=== PATIENT | female | born 1955 | race African-American/Black ===

== ENCOUNTER 2016-05-23 17:38 | Emergency (ER) | payer OTHER ==
--- NOTE | 2016-05-23 19:59 | PROVIDER DOCUMENTATION ---
HPI-Musculoskeletal Pain/Inj - GENERAL Chief Complaint: Fall Stated Complaint: increased pain post fall Time Seen by Provider: 05/23/16 19:15 Source: patient - HX OF PRESENT ILLNESS-MUSKULOSKELTAL Nature of Presenting Problem: Pt is a 61 y/o AA female sent by [facility] for evaluation of sacral and pelvis pain after she fell backwards and landed on her buttocks. Pt was unable to walk. She has a h/o renal failure and received dialysis today. On arrival, pt is in minimal distress and is non-ambulatory. Review of Systems - Adult - REVIEW OF SYSTEMS - ADULT Constitutional: reports: no symptoms reported. denies: chills, fatique Eyes: reports: no symptoms reported. denies: blurred vision, double vision Ears, Nose, Mouth & Throat: reports: no symptoms reported. denies: ear pain, nose pain, throat pain Cardiovascular: reports: no symptoms reported. denies: chest pain, orthopnea Respiratory: reports: no symptoms reported. denies: cough, shortness of breath Gastrointestinal: reports: no symptoms reported. denies: abdominal pain, nausea Genitourinary: reports: no symptoms reported. denies: flank pain, hesitency Musculoskeletal: reports: bone pain, back pain, joint pain, muscle aches Integumentary: reports: no symptoms reported. denies: itching, rash Neurological: reports: no symptoms reported. denies: numbness, paresthesia Psychiatric: reports: no symptoms reported. denies: anxiety, emotional problems Endocrine: reports: no symptoms reported. denies: cold intolerance, heat intolerance Hematologic/Lymphatic: reports: no symptoms reported. denies: blood clots, low blood count Allergic/Immunologic: reports: no symptoms reported. denies: allergic reactions , food allergy All Other Systems: Reviewed and Negative Past History - Adult - PAST MEDICAL HISTORY-ADULT Review of Records: reports: Old Records Reviewed, Nursing Assessment Review, Medications Reviewed, Social history reviewed & non-contributory. Major Childhood Illnesses: reports: denies history Cardiovascular: reports: A-Fib, CHF (EF of 43% as of Feb 2013), HTN, [place] Respiratory: reports: COPD Gastrointestinal: reports: denies history Obstetrical/Gynecological: reports: denies history Genitourinary: reports: kidney disease Musculoskeletal: reports: denies history Neurological: reports: denies history Endocrine/Immune: reports: Diabetes, HIV/AIDS Other Conditions: reports: denies history Additional History: HIV + - PRIOR SURGERIES/PROCEDURES Surgical/Procedure History: reports: hysterectomy, hernia repair, other (cyst removed from left breast; pediatric heart Sx) - IMMUNIZATION STATUS Childhood Immunizations: NUTD Flu Vaccine: UTD - FAMILY HISTORY Family History: CAD over 55 yo, other (kidney disease, hyperlipidemia) - SOCIAL HISTORY Smoking: denies Substance Use: none/never Alcohol Use Frequency: never Living Situation: family Physical Exam-Injury Related - Physical Exam-Injury Related Initial Vital Signs Reviewed: Yes General Appearance: appears well, alert, no apparent distress Eyes: PERRL/EOMI, pink conjunctivae Head, Ears, Nose, Mouth & Throat: normocephalic/atraumatic, moist mucous membranes, normal ENT inspection Neck: non-tender, full range of motion, supple Respiratory: chest non-tender, lungs clear, normal breath sounds Cardiovascular: normal peripheral pulses, regular rate, rhythm, no edema Abdominal Exam: normal bowel sounds, non tender, soft Lymphatic: no adenopathy Back Exam: normal inspection, vertebral tenderness (lower lumbar tenderness) Progress - PLAN OF CARE/RESULTS Progress/Plan/Lab Results: Orders Category Date Time Status LUMBAR SPINE W/O CONTRAST [CT] Stat Exams 05/23/16 19:51 Taken PELVIS W/O CONTRAST [CT] Stat Exams 05/23/16 19:51 Taken Vital Signs - 24 hr 05/23/16 17:41 Temperature 97.6 F Pulse Rate 76 Respiratory 16 Rate Blood Pressure 145/67 O2 Sat by Pulse 100 Oximetry - CT/MRI 1 CT Study: Lumbar Spine, Pelvis Impression: Abnormal (L-spine: old minimal compression fx to L1 vs. normal. No change. Pelvis: Questionable insufficiency fx to the L sacrum - prelim radiology report) - CONSULTS/PCP/HOSPITALIST Notification #1 *Consult/PCP/Hospitalist*: Dr. Garcia (Ortho) Time Discussed: 21:01 Reason/Comments: Agrees c d/c home and f/u in clinic. Consult Disposition: F/U in office Departure - Departure Time of Disposition Order: 20:59 DIAGNOSIS: Sacral insufficiency fracture Qualifiers: Encounter type: initial encounter Qualified Code(s): M84.48XA - Pathological fracture, other site, initial encounter for fracture Disposition: HOME 01 Certified Medical Emergency: Emergent Condition: Stable Additional Instructions: WEIGHT BEARING TOLERATED. FOLLOW UP WITH ORTHO ED Follow Up Instructions: You have been treated by a care provider in the Emergency Department. These instructions are being provided to you so you can have an understanding of how to care for yourself upon discharge. Upon discharge from the Emergency Department, you are responsible for making arrangements for follow-up care by a physician of your choice. Take all prescribed medications as directed. Return to the Emergency Department immediately for any new or worsening symptoms. You may call the Physician Referral phone number at [phone] to obtain a list of Physicians who are taking new patients. Referrals: Jose Cruz Farmer MD [Primary Care Provider] - Clifton Garcia MD [STAFF PHYSICIAN] - Attestation - Physician/ [facility] Attestation Patient care was provided by Advanced Practice Provider:: Yes Advanced Practice Provider:: Milton Anthony Advanced Practice Provider documentation review:: The Mid-level provider documentation, treatment plan and medical decision making was reviewed by the physician who agrees with all treatment and medical decision making by the MLP.
[2016-05-23 21:29] VITALS: BP 136/63
--- NOTE | 2016-05-24 08:02 | Diag Imaging Result Document ---
PROCEDURE NAME: PELVIS W/O CONTRAST - 05/23/2016 CT BONY PELVIS WITHOUT CONTRAST: TECHNIQUE: A dose reduction protocol was used. Axial and reformatted coronal and sagittal images are obtained. Compared with 09/16/2015. FINDINGS: There is an old fracture deformity at the left inferior pubic ramus. There is old fracture deformity of the left superior pubic ramus near the ischial junction. There is no acute pelvis fracture identified. There is no hip fracture or dislocation identified. There is a questionable insufficiency fracture of the left sacral ala. There has been interval widening of the right sacroiliac joint. The ilial bony margin of the right sacroiliac joint has a scalloped appearance. This suggests that the widening of the joint likely relates to interval inflammatory arthritis at the joint, rather than acute traumatic widening. There are atherosclerotic calcifications noted. IMPRESSION: 1. Old fracture deformities of left inferior and superior pubic rami. No evidence of acute pelvis fracture. No evidence of hip fracture or dislocation. 2. Questionable insufficiency fracture of left sacral ala. 3. Interval widening of right sacroiliac joint with scalloped bony margin at the adjacent ilium. Appearance suggests interval inflammatory arthritis at the right sacroiliac joint, rather than acute injury. Correlation with clinical evaluation is recommended. The on-call radiologist provided preliminary results at 8:37 p.m. on 05/23/2016. MTDD
--- NOTE | 2016-05-24 08:16 | Diag Imaging Result Document ---
PROCEDURE NAME: LUMBAR SPINE W/O CONTRAST - 05/23/2016 CT LUMBAR SPINE WITHOUT CONTRAST: TECHNIQUE: A dose reduction protocol was used. Axial and reformatted sagittal and coronal images are obtained. No comparison exam. FINDINGS: There is mild anterior wedge deformity of the L1 vertebral body. This has smooth appearance and may relate to old mild compression fracture or to normal variation. There are multilevel Schmorl nodes consistent with longstanding change. There are multilevel anterior and lateral osteophytes. There is no acute fracture identified. There is no subluxation seen. There is moderate spinal stenosis at L4-5 secondary to ligamentum flavum hypertrophy in combination with some facet hypertrophy and broad, shallow posterior disk protrusion. There is mild spinal stenosis at L3-4 secondary to ligamentum flavum and facet hypertrophy, possibly in combination with posterior disk bulge. IMPRESSION: 1. Old mild compression fracture deformity at L1 versus normal variation. No evidence of acute fracture or subluxation. 2. Degenerative changes with moderate spinal stenosis at L4-5. Degenerative changes with mild spinal stenosis at L3-4. 3. Please see report of CT bony pelvis for evaluation of the sacrum.
== END 2016-05-23 21:30 | disposition other institution (70) ==
LOC: ED 17:38
DX: M84.48XA Pathological fracture, other site, initial encounter for fracture (principal); M54.9 Dorsalgia, unspecified; M79.1 Myalgia; I48.91 Unspecified atrial fibrillation; I10 Essential (primary) hypertension; I25.2 Old myocardial infarction; J44.9 Chronic obstructive pulmonary disease, unspecified; E11.9 Type 2 diabetes mellitus without complications; Z79.899 Other long term (current) drug therapy; Z21 Asymptomatic human immunodeficiency virus [HIV] infection status; W19.XXXA Unspecified fall, initial encounter; Z82.49 Family history of ischemic heart disease and other diseases of the circulatory system; Z79.82 Long term (current) use of aspirin; Z79.4 Long term (current) use of insulin
CPT/HCPCS: 72131; 72192